=== PATIENT | female | born 1970 | race Caucasian/White ===

== ENCOUNTER 2021-11-11 00:26 | Emergency (ER) | payer SELFPAY ==
[~2021-11-11] VITALS: Ht 167.6 cm; Wt 81.6 kg
[2021-11-11 00:30] VITALS: BP 134/63
--- NOTE | 2021-11-11 00:33 | NUR ---
TO LOBBY A/W BED VIA W/C
--- NOTE | 2021-11-11 01:30 | NUR ---
pt c/o right sided abdominal pain with intermittent n/v x1 week. pt states similar episode in june seen in ed with a negative work up. iv inserted to left ac #[id number] medicated per order. pending results. nad
[2021-11-11] MEDS ORDERED: ONDANSETRON 4 MG/2 ML VIAL IVP ONE (01:35)
[2021-11-11] MEDS ORDERED: NACL 0.9% 1,000 ML IV ONE (01:35)
[2021-11-11 01:49] LABS: BASOPHILS # (AUTO) 0.1 K/uL (0.00-0.22); BASOPHILS % (AUTO) 1.4 % (0.0-2.0); EOSINOPHILS # (AUTO) 0.1 K/uL (0-0.4); EOSINOPHILS % (AUTO) 0.8 % (0.0-4.0); HEMATOCRIT 34.4 % (36-48); HEMOGLOBIN 11.1 g/dL (12.0-16.0); LYMPHOCYTES # (AUTO) 2.2 K/uL (2.5-16.5); LYMPHOCYTES % (AUTO) 27.7 % (20.5-51.1); MEAN CORPUSCULAR HEMOGLOBIN 22 pg (27-31); MEAN CORPUSCULAR HGB CONC 32 g/dL (33-37); MEAN CORPUSCULAR VOLUME 67.5 fL (80-94); MONOCYTES # (AUTO) 0.6 K/uL (0.8-1.0); MONOCYTES % (AUTO) 7.8 % (1.7-9.3); NEUTROPHILS # (AUTO) 4.9 K/uL (1.8-7.7); NEUTROPHILS % (AUTO) 62.3 % (42.2-75.2); PLATELET COUNT (AUTO) 227 K/uL (140-450); RED CELL DISTRIBUTION WIDTH 21.1 % (11.6-13.7); WHITE BLOOD COUNT (AUTO) 7.8 K/uL (4.8-10.8)
[2021-11-11 02:08] LABS: ALBUMIN 3.6 g/dL (3.4-5.0); ANION GAP 13.1 (8-16); CARBON DIOXIDE 29.8 mmol/L (21-32); CREATININE 0.7 mg/dL (0.6-1.3); TOTAL BILIRUBIN 0.6 mg/dL (0.0-1.0)
[2021-11-11 02:13] LABS: POTASSIUM 2.9 mmol/L (3.5-5.1)
[2021-11-11] MEDS ORDERED: POTASSIUM CHLORIDE 10 MEQ TABER PO ONE ×2 (02:30)
[2021-11-11] MEDS ORDERED: SUCRALFATE 1 GM TAB PO SCH (02:45)
[2021-11-11] MEDS ORDERED: ALUMINUM HYD/MAG/SIMETHICONE 30 ML UDC PO ONE (02:45)
[2021-11-11 02:58] LABS: APPEARANCE,URINE CLEAR (CLEAR); BILIRUBIN,URINE NEGATIVE (NEGATIVE); BLOOD, URINE NEGATIVE (NEGATIVE); COLOR,URINE YELLOW (YELLOW); LEUKOCYTE ESTERASE ,URINE NEGATIVE (NEGATIVE); NITRITE, URINE NEGATIVE (NEGATIVE); UGLUCOSE NEGATIVE (NEGATIVE)
[2021-11-11 03:14] LABS: RBC,URINE 0-5 /HPF (0-5); WBC,URINE 0-5 /HPF (0-5)
[2021-11-11 03:15] LABS: HYALINE CASTS, URINE 0-5 /LPF (None Seen)
[2021-11-11] MEDS ORDERED: ONDA-188 SL (03:51)
[2021-11-11 04:01] VITALS: BP 109/70
--- NOTE | 2021-11-11 04:01 | NUR ---
Patient discharged with v/s stable. Written and verbal after care instructions given and explained. Patient verbalized understanding. Ambulatory with steady gait. All questions addressed prior to discharge. Advised to follow up with PMD.
--- NOTE | 2021-11-20 10:19 | NUR ---
LATE ENTRY- IV NORMAL SALINE DISCONTINUED AT 0401.
== END 2021-11-11 04:01 | disposition home or self-care (01) ==
LOC: MED 00:26
DX: E87.6 Hypokalemia (principal); R11.2 Nausea with vomiting, unspecified
CPT/HCPCS: 36415; 71045; 80053; 81001; 83690; 84484; 85025; 93005; 96361; 96374; 99285; J2405; J7030; Q0092

== ENCOUNTER 2023-08-26 15:49 | Inpatient (IN) | payer MEDICAID ==
[~2023-08-26] VITALS: Ht 167.6 cm; Wt 94.8 kg
[~2023-08-26 15:49] MED LIST: ONDA-188 SL
[2023-08-26 16:30] VITALS: BP 154/84; PULSE 95; RESP 20; TEMP 98; O2SAT 98
[2023-08-26] MEDS ORDERED: FAMOTIDINE 20 MG/2 ML VIAL IVP ONE (18:05)
[2023-08-26] MEDS ORDERED: ONDANSETRON 4 MG/2 ML VIAL IVP ONE (18:05)
[2023-08-26] MEDS ORDERED: NACL 0.9% 1,000 ML IV ONE (18:05)
[2023-08-26] MEDS ORDERED: DICYCLOMINE HCL LIQUID 20 MG, ALUMINUM HYD/MAG/SIMETHICONE 30 ML, LIDOCAINE VISCOUS 2% ... PO ONE ×3 (18:05)
[2023-08-26 18:29] VITALS: O2SAT 98
[2023-08-26] MEDS ORDERED: DICYCLOMINE HCL LIQUID 10 MG/5 ML UDC ONE (18:40)
[2023-08-26] MEDS ORDERED: ALUMINUM HYD/MAG/SIMETHICONE 30 ML UDC ONE (18:40)
[2023-08-26] MEDS ORDERED: LABETALOL 20 MG/4 ML VIAL IVP ONE (18:50)
[2023-08-26 18:53] LABS: BASOPHILS # (AUTO) 0.1 K/uL (0.00-0.22); BASOPHILS % (AUTO) 0.5 % (0.0-2.0); EOSINOPHILS % (AUTO) 0.1 % (0.0-4.0); HEMOGLOBIN 15.3 g/dL (12.0-16.0); LYMPHOCYTES # (AUTO) 1.8 K/uL (2.5-16.5); LYMPHOCYTES % (AUTO) 16.4 % (20.5-51.1); MEAN CORPUSCULAR HEMOGLOBIN 29 pg (27-31); MEAN CORPUSCULAR HGB CONC 34 g/dL (33-37); MEAN CORPUSCULAR VOLUME 85.3 fL (80-94); MONOCYTES # (AUTO) 0.6 K/uL (0.8-1.0); MONOCYTES % (AUTO) 5.7 % (1.7-9.3); NEUTROPHILS # (AUTO) 8.4 K/uL (1.8-7.7); NEUTROPHILS % (AUTO) 77.3 % (42.2-75.2); PLATELET COUNT (AUTO) 237 K/uL (140-450); RED BLOOD CELL COUNT(AUTO) 5.28 MIL/uL (4.20-5.40); RED CELL DISTRIBUTION WIDTH 13.2 % (11.6-13.7); WHITE BLOOD COUNT (AUTO) 10.9 K/uL (4.8-10.8)
[2023-08-26 19:12] LABS: ALBUMIN 3.8 g/dL (3.4-5.0); ANION GAP 17.5 (8-16); CALCIUM 9.6 mg/dL (8.5-10.1); CARBON DIOXIDE 25.2 mmol/L (21-32); POTASSIUM 3.7 mmol/L (3.5-5.1); TOTAL BILIRUBIN 1.4 mg/dL (0.0-1.0); TOTAL PROTEIN, SERUM 8.4 g/dL (6.4-8.2)
[2023-08-26] MEDS ORDERED: NITROGLYCERIN 0.4 MG TAB SL ONE (19:40)
[2023-08-26] MEDS ORDERED: ASPIRIN 325 MG TAB PO ONE (19:40)
[2023-08-26 19:51] VITALS: O2SAT 95
[2023-08-26] MEDS ORDERED: LORazepam 1 MG TAB PO PRN (21:35)
[2023-08-26] MEDS ORDERED: HYDROcodone/APAP 5/325 MG 1 TAB TAB PO PRN (21:35)
[2023-08-26] MEDS ORDERED: ACETAMINOPHEN 325 MG TAB PO PRN (21:35)
[2023-08-26] MEDS ORDERED: POTASSIUM CHLORIDE 10 MEQ TABER PO PRN (21:35)
[2023-08-26] MEDS ORDERED: KCL 20 MEQ IN 100 mL PREMIX 200 ML IV PRN (21:35)
[2023-08-26] MEDS ORDERED: MAG SULF 2000 MG/WATER PREMIX 50 ML IV PRN (21:35)
[2023-08-26] MEDS ORDERED: ZOLPIDEM 5 MG TAB PO PRN (21:35)
[2023-08-26] MEDS ORDERED: NITROGLYCERIN 0.4 MG TAB SL PRN (21:45)
[2023-08-26 22:10] VITALS: O2SAT 95
[2023-08-26] MEDS: ATORVASTATIN 20 MG TAB PO SCH (22:30)
[2023-08-26 23:02] VITALS: PULSE 74; RESP 18; O2SAT 98
[2023-08-27] VITALS (12 sets, daily range): BP systolic 140–158; BP diastolic 71–89; PULSE 72–86; RESP 16–18; TEMP 97–97.9; O2SAT 96–99
[2023-08-27] MEDS: MORPHINE SULFATE 4 MG/ML SYR IVP PRN ×3 (04:28→17:28)
[2023-08-27 06:01] LABS: BASOPHILS # (AUTO) 0.1 K/uL (0.00-0.22); BASOPHILS % (AUTO) 0.6 % (0.0-2.0); EOSINOPHILS % (AUTO) 0.2 % (0.0-4.0); HEMATOCRIT 41.8 % (36-48); HEMOGLOBIN 14.1 g/dL (12.0-16.0); LYMPHOCYTES # (AUTO) 2.2 K/uL (2.5-16.5); LYMPHOCYTES % (AUTO) 23.9 % (20.5-51.1); MEAN CORPUSCULAR HEMOGLOBIN 29 pg (27-31); MEAN CORPUSCULAR HGB CONC 34 g/dL (33-37); MEAN CORPUSCULAR VOLUME 86.2 fL (80-94); MONOCYTES # (AUTO) 0.7 K/uL (0.8-1.0); MONOCYTES % (AUTO) 7.8 % (1.7-9.3); NEUTROPHILS # (AUTO) 6.1 K/uL (1.8-7.7); NEUTROPHILS % (AUTO) 67.5 % (42.2-75.2); PLATELET COUNT (AUTO) 208 K/uL (140-450); RED BLOOD CELL COUNT(AUTO) 4.84 MIL/uL (4.20-5.40); RED CELL DISTRIBUTION WIDTH 13.2 % (11.6-13.7)
[2023-08-27 06:06] LABS: ANION GAP 15.7 (8-16); CALCIUM 9.1 mg/dL (8.5-10.1); CARBON DIOXIDE 25.3 mmol/L (21-32); CREATININE 0.8 mg/dL (0.6-1.3)
[2023-08-27] MEDS: ASPIRIN 81 MG TAB.CHEW PO SCH (08:46)
[2023-08-27] MEDS: ONDANSETRON 4 MG/2 ML VIAL IVP PRN (08:46)
[2023-08-27] MEDS: ALUMINUM HYD/MAG/SIMETHICONE 30 ML UDC PO PRN ×2 (12:17→17:28)
[2023-08-27] MEDS ORDERED: hydrALAZINE 25 MG TAB PO PRN (13:40)
[2023-08-27] MEDS: ATORVASTATIN 20 MG TAB PO SCH (21:11)
[2023-08-27] MEDS: lisinopriL 20 MG TAB PO SCH (21:14)
[2023-08-28] VITALS (11 sets, daily range): BP systolic 96–167; BP diastolic 53–88; PULSE 60–97; RESP 16–18; TEMP 96.7–97.6; O2SAT 96–100
[2023-08-28] MEDS ORDERED: DEXTROSE 50% 50 ML SYR IVP PRN (06:05)
[2023-08-28 06:37] LABS: ANION GAP 11.9 (8-16); CALCIUM 8.7 mg/dL (8.5-10.1); CARBON DIOXIDE 28.2 mmol/L (21-32); CREATININE 0.8 mg/dL (0.6-1.3); POTASSIUM 4.1 mmol/L (3.5-5.1)
[2023-08-28 06:39] LABS: BASOPHILS # (AUTO) 0.1 K/uL (0.00-0.22); BASOPHILS % (AUTO) 0.9 % (0.0-2.0); EOSINOPHILS % (AUTO) 0.6 % (0.0-4.0); HEMATOCRIT 42.2 % (36-48); HEMOGLOBIN 14.2 g/dL (12.0-16.0); LYMPHOCYTES # (AUTO) 2.4 K/uL (2.5-16.5); LYMPHOCYTES % (AUTO) 34.6 % (20.5-51.1); MEAN CORPUSCULAR HEMOGLOBIN 29 pg (27-31); MEAN CORPUSCULAR HGB CONC 34 g/dL (33-37); MONOCYTES # (AUTO) 0.6 K/uL (0.8-1.0); MONOCYTES % (AUTO) 8.8 % (1.7-9.3); NEUTROPHILS # (AUTO) 3.8 K/uL (1.8-7.7); NEUTROPHILS % (AUTO) 55.1 % (42.2-75.2); PLATELET COUNT (AUTO) 180 K/uL (140-450); RED BLOOD CELL COUNT(AUTO) 4.96 MIL/uL (4.20-5.40); WHITE BLOOD COUNT (AUTO) 6.9 K/uL (4.8-10.8)
[2023-08-28] MEDS: BLOOD GLUCOSE MONITORING 1 DEV DEV FS SCH ×4 (07:35→20:42)
[2023-08-28] MEDS: ASPIRIN 81 MG TAB.CHEW PO SCH ×2 (08:31→09:00)
[2023-08-28] MEDS: lisinopriL 20 MG TAB PO SCH ×3 (08:32→20:30)
[2023-08-28] MEDS ORDERED: REGADENOSON 0.4 MG/5 ML SYR IV SCH (11:40)
[2023-08-28] MEDS: ALUMINUM HYD/MAG/SIMETHICONE 30 ML UDC PO PRN ×2 (15:47→22:02)
[2023-08-28] MEDS: INSULIN LISPRO SLIDING SCALE 100 UNITS/ML VIAL SUBQ PRN ×2 (15:51→20:42)
[2023-08-28] MEDS: ONDANSETRON 4 MG/2 ML VIAL IVP PRN (16:46)
[2023-08-28] MEDS: ATORVASTATIN 20 MG TAB PO SCH (20:30)
[2023-08-28] MEDS: MORPHINE SULFATE 4 MG/ML SYR IVP PRN (20:33)
[2023-08-29] VITALS (7 sets, daily range): BP systolic 117–165; BP diastolic 68–90; PULSE 86–101; RESP 17–20; TEMP 96.8–98; O2SAT 95–97
[2023-08-29] MEDS: ALUMINUM HYD/MAG/SIMETHICONE 30 ML UDC PO PRN ×2 (04:23→12:39)
[2023-08-29 05:22] LABS: BASOPHILS % (AUTO) 0.4 % (0.0-2.0); EOSINOPHILS % (AUTO) 0.2 % (0.0-4.0); HEMATOCRIT 43.5 % (36-48); HEMOGLOBIN 14.8 g/dL (12.0-16.0); LYMPHOCYTES # (AUTO) 1.9 K/uL (2.5-16.5); LYMPHOCYTES % (AUTO) 15.8 % (20.5-51.1); MEAN CORPUSCULAR HEMOGLOBIN 29 pg (27-31); MEAN CORPUSCULAR HGB CONC 34 g/dL (33-37); MEAN CORPUSCULAR VOLUME 84.3 fL (80-94); MONOCYTES # (AUTO) 0.6 K/uL (0.8-1.0); MONOCYTES % (AUTO) 5.1 % (1.7-9.3); NEUTROPHILS # (AUTO) 9.2 K/uL (1.8-7.7); NEUTROPHILS % (AUTO) 78.5 % (42.2-75.2); PLATELET COUNT (AUTO) 217 K/uL (140-450); RED BLOOD CELL COUNT(AUTO) 5.16 MIL/uL (4.20-5.40); WHITE BLOOD COUNT (AUTO) 11.8 K/uL (4.8-10.8)
[2023-08-29 06:36] LABS: ANION GAP 21.5 (8-16); CALCIUM 8.8 mg/dL (8.5-10.1); CARBON DIOXIDE 22.3 mmol/L (21-32); CREATININE 0.7 mg/dL (0.6-1.3); POTASSIUM 3.8 mmol/L (3.5-5.1)
[2023-08-29] MEDS: BLOOD GLUCOSE MONITORING 1 DEV DEV FS SCH ×2 (06:46→11:23)
[2023-08-29] MEDS: INSULIN LISPRO SLIDING SCALE 100 UNITS/ML VIAL SUBQ PRN (06:47)
[2023-08-29] MEDS: lisinopriL 20 MG TAB PO SCH (08:02)
[2023-08-29] MEDS: ASPIRIN 81 MG TAB.CHEW PO SCH (08:02)
[2023-08-29] MEDS ORDERED: PANT40EC PO (12:25)
[2023-08-29] MEDS ORDERED: CALC355O5 PO (12:26)
[2023-08-29] MEDS: ONDANSETRON 4 MG/2 ML VIAL IVP PRN (12:40)
== END 2023-08-29 14:20 | disposition home or self-care (01) | DRG 190 ==
LOC: MED 15:49 → MTU 21:33 → OBSVTOIN 21:41 → MTU 22:05
PROVIDERS: ADMIT Student in an Organized Health Care Education/Training Program; ATTEND Student in an Organized Health Care Education/Training Program
DX: I21.4 Non-ST elevation (NSTEMI) myocardial infarction (principal); R65.10 Systemic inflammatory response syndrome (SIRS) of non-infectious origin without acute organ dysfunction; E11.9 Type 2 diabetes mellitus without complications; E78.5 Hyperlipidemia, unspecified; I16.0 Hypertensive urgency; I20.9 Angina pectoris, unspecified; I10 Essential (primary) hypertension; Z90.49 Acquired absence of other specified parts of digestive tract; Z98.891 History of uterine scar from previous surgery
CPT/HCPCS: 36415; 71045; 80048; 80053; 82009; 82948; 83735; 83880; 84484; 85025; 85379; 87081; 93005; 93017; A9500; A9502; J1644; J1815; J2270; J2405; J2785; J3490; Q0092

== ENCOUNTER 2024-01-17 14:05 | Emergency (ER) | payer MEDICAID, OTHER ==
[~2024-01-17] VITALS: Ht 167.6 cm; Wt 89.0 kg
[~2024-01-17 14:05] MED LIST changes: +CALC355O5 PO; -ONDA-188 SL; +PANT40EC PO
[2024-01-17 14:40] VITALS: BP 114/85; PULSE 105; RESP 18; TEMP 98; O2SAT 98
[2024-01-17 15:12] VITALS: BP 145/95; PULSE 87; RESP 17; TEMP 98
[2024-01-17 15:12] LABS: BASOPHILS # (AUTO) 0.1 K/uL (0.00-0.22); BASOPHILS % (AUTO) 0.6 % (0.0-2.0); EOSINOPHILS # (AUTO) 0.1 K/uL (0-0.4); EOSINOPHILS % (AUTO) 0.6 % (0.0-4.0); HEMATOCRIT 47.3 % (36-48); HEMOGLOBIN 16.3 g/dL (12.0-16.0); LYMPHOCYTES # (AUTO) 4.3 K/uL (2.5-16.5); LYMPHOCYTES % (AUTO) 26.6 % (20.5-51.1); MEAN CORPUSCULAR HEMOGLOBIN 29 pg (27-31); MEAN CORPUSCULAR HGB CONC 35 g/dL (33-37); MEAN CORPUSCULAR VOLUME 83.5 fL (80-94); MONOCYTES # (AUTO) 1.1 K/uL (0.8-1.0); MONOCYTES % (AUTO) 6.6 % (1.7-9.3); NEUTROPHILS # (AUTO) 10.5 K/uL (1.8-7.7); NEUTROPHILS % (AUTO) 65.6 % (42.2-75.2); PLATELET COUNT (AUTO) 257 K/uL (140-450); RED BLOOD CELL COUNT(AUTO) 5.66 MIL/uL (4.20-5.40); RED CELL DISTRIBUTION WIDTH 13.4 % (11.6-13.7)
[2024-01-17 15:13] VITALS: O2SAT 98
[2024-01-17 15:19] LABS: APPEARANCE,URINE CLEAR (CLEAR); BILIRUBIN,URINE 2+ (NEGATIVE); BLOOD, URINE NEGATIVE (NEGATIVE); COLOR,URINE YELLOW (YELLOW); LEUKOCYTE ESTERASE ,URINE NEGATIVE (NEGATIVE); NITRITE, URINE NEGATIVE (NEGATIVE); PROTEIN,URINE NEGATIVE (NEGATIVE); UGLUCOSE 3+ (NEGATIVE); UROBILINOGEN,URINE 0.2 EU/dL (0.2 - 1)
[2024-01-17 15:23] LABS: ICTOTEST NEGATIVE (NEGATIVE)
[2024-01-17 15:24] LABS: ANION GAP 11.4 (8-16); CALCIUM 8.9 mg/dL (8.5-10.1); CARBON DIOXIDE 29.5 mmol/L (21-32); POTASSIUM 3.9 mmol/L (3.5-5.1)
[2024-01-17 15:27] LABS: ALBUMIN 3.3 g/dL (3.4-5.0); BILIRUBIN,DIRECT 0.2 mg/dL (0.0-0.3); TOTAL BILIRUBIN 0.9 mg/dL (0.0-1.0); TOTAL PROTEIN, SERUM 8.7 g/dL (6.4-8.2)
[2024-01-17] MEDS: NACL 0.9% 1,000 ML IV ONE ×2 (15:42→16:22)
[2024-01-17] MEDS ORDERED: ONDA-188 SL (16:12)
[2024-01-17] MEDS ORDERED: FAMO-90 PO (16:12)
[2024-01-17] MEDS: ONDANSETRON 4 MG/2 ML VIAL IVP ONE (16:27)
[2024-01-17] MEDS ORDERED: MAG355OR2 PO (16:29)
== END 2024-01-17 17:50 | disposition home or self-care (01) ==
LOC: MED 14:05
DX: E11.65 Type 2 diabetes mellitus with hyperglycemia (principal); E86.0 Dehydration; R11.2 Nausea with vomiting, unspecified; E87.1 Hypo-osmolality and hyponatremia; R10.12 Left upper quadrant pain; I10 Essential (primary) hypertension; Z90.49 Acquired absence of other specified parts of digestive tract; Z98.890 Other specified postprocedural states; Z79.899 Other long term (current) drug therapy
CPT/HCPCS: 36415; 80048; 80076; 81003; 85025; 93005; 96361; 96374; 99284; J2405; J7030